=== PATIENT | male | born 1980 | race Caucasian/White ===

== ENCOUNTER 2019-11-15 17:37 | Emergency (ER) | payer SELFPAY ==
[~2019-11-15] VITALS: Ht 190.5 cm; Wt 136.1 kg
[2019-11-15 18:30] VITALS: BP 142/95
--- NOTE | 2019-11-15 18:54 | PHYS DOC ---
Past History Past Medical History: No Pertinent History Additional Past Surgical Histo: oral surgery and stitches Alcohol Use: None Drug Use: None Adult General Chief Complaint Chief Complaint: FINGER INJURY HPI HPI 38-year-old male presents with right fifth digit laceration. The patient was moving boxes in his basement when he reaches into a box and felt something sharp. When he pulled it back out he felt something dry compresses finger and lacerated the palmar side of the distal fifth digit. He had immediate bleeding. He put some peroxide on the wound, then realized that he had tissue sticking out of the wound would require stitches. His tetanus is not up to date. He denies any other wounds or complaints. Review of Systems Review of Systems Constitutional: Denies fever or chills [] Eyes: Denies change in visual acuity, redness, or eye pain [] HENT: Denies nasal congestion or sore throat [] Respiratory: Denies cough or shortness of breath [] Cardiovascular: No additional information not addressed in HPI [] GI: Denies abdominal pain, nausea, vomiting, bloody stools or diarrhea [] : Denies dysuria or hematuria [] Musculoskeletal: Denies back pain or joint pain [] Integument: Laceration right fifth finger[] Neurologic: Denies headache, focal weakness or sensory changes [] Endocrine: Denies polyuria or polydipsia [] All other systems were reviewed and found to be within normal limits, except as documented in this note. Allergies Allergies Allergies Coded Allergies Type Severity Reaction Last Updated Verified ciprofloxacin Allergy Severe Hives 11/15/19 Yes Physical Exam Physical Exam Constitutional: Well developed, well nourished, no acute distress, non-toxic appearance. [] HENT: Normocephalic, atraumatic, bilateral external ears normal, oropharynx moist, no oral exudates, nose normal. [] Eyes: PERRLA, EOMI, conjunctiva normal, no discharge. [] Neck: Normal range of motion, no tenderness, supple, no stridor. [] Cardiovascular:Heart rate regular rhythm, no murmur [] Lungs & Thorax: Bilateral breath sounds clear to auscultation [] Abdomen: Bowel sounds normal, soft, no tenderness, no masses, no pulsatile masses. [] Skin: 0.5 cm laceration of the right fifth digit palmar side.[] Back: No tenderness, no CVA tenderness. [] Extremities: No tenderness, no cyanosis, no clubbing, ROM intact, no edema. [] Neurologic: Alert and oriented X 3, normal motor function, normal sensory function, no focal deficits noted. [] Psychologic: Affect normal, judgement normal, mood normal. [] Current Patient Data Vital Signs Vital Signs Date Time Temp Pulse Resp B/P (MAP) Pulse Ox O2 Delivery O2 Flow Rate FiO2 11/15/19 18:30 98.0 101 18 100 Room Air EKG EKG [] Radiology/Procedures Radiology/Procedures [] Course & Med Decision Making Course & Med Decision Making Pertinent Labs and Imaging studies reviewed. (See chart for details) I was able to the patient's laceration was sutures. See note below for more details. We updated his tetanus vaccine in the ED. The patient is stable for discharge at this time. [] Dragon Disclaimer Dragon Disclaimer This electronic medical record was generated, in whole or in part, using a voice recognition dictation system. Laceration Repair Lac Repair Indication: []1.5 cm linear laceration of the right fifth digit. Procedure: Verbal consent was obtained from the patient for suture repair of the laceration of his finger on the right hand. The wound was anesthetized with 1% lidocaine without epinephrine. A total of 1.5 mL was used. After good anesthesia was achieved, the wound was thoroughly irrigated with saline under pressure. No foreign bodies were found. I repaired the wound with 3 4-0 Ethilon sutures in an interrupted fashion. There was good skin approximation. Bleeding was controlled. A clean dressing was applied over the wound. Total repaired wound length: 1.5 Other Items: none The patient tolerated the procedure well. Complications: None. Departure Departure: Impression: Primary Impression: Laceration of finger of right hand Disposition: HOME, SELF-CARE Condition: IMPROVED Referrals: PCP,NO (PCP) Patient Instructions: Fingertip Laceration Problem Qualifiers Primary Impression: Laceration of finger of right hand Encounter type: initial encounter Finger: little finger Damage to nail status: without damage Foreign body presence: without foreign body Qualified Codes: S61.216A - Laceration without foreign body of right little finger without damage to nail, initial encounter CLARY FLORENCE DO Nov 15, 2019 18:54
[2019-11-15] MEDS ORDERED: DIPHTH,PERTUSS(ACELL),TET TOX 0.5 ML DISP.SYRIN. VAX IM ONE (19:00)
== END 2019-11-15 19:16 | disposition home or self-care (01) ==
LOC: ER 17:37
DX: S61.216A Laceration without foreign body of right little finger without damage to nail, initial encounter (principal); Z88.1 Allergy status to other antibiotic agents; W26.8XXA Contact with other sharp object(s), not elsewhere classified, initial encounter; Y93.89 Activity, other specified; Y92.89 Other specified places as the place of occurrence of the external cause; Y99.8 Other external cause status
CPT/HCPCS: 12001; 90471; 90715; 99283

== ENCOUNTER → 2022-04-06 | Outpatient (CLI) | payer OTHER ==
--- NOTE | 2022-04-07 09:28 | RAD ---
US HEAD/NECK SOFT TISSUE History: Left neck nodule. Comparison: None. Technique: Multiple grayscale and color Doppler images of the neck were obtained. Findings: Within the subcutaneous fat layer in the left neck, there is an ovoid circumscribed mass me asuring 4.0 x 1.4 x 2.6 cm with echogenicity similar to adjacent fat and a few linear echogenic fibro us features. No internal color Doppler blood flow. IMPRESSION: 1. Ovoid subcutaneous mass in the left neck measuring to 4 cm diameter with features most consistent with a lipoma. Electronically signed by: Rodolfo Appiah MD (04/07/2022 7:09 AM) [id number]
== END ==
LOC: US 12:57
PROVIDERS: ATTEND Physician Assistant Medical
DX: R22.1 Localized swelling, mass and lump, neck (principal)
CPT/HCPCS: 76536